=== PATIENT | female | born 1950 | race Caucasian/White ===

== ENCOUNTER 2020-02-25 08:49 | Emergency (ER) | payer BC, MEDICARE ==
[~2020-02-25] VITALS: Ht 167.6 cm; Wt 78.0 kg
[2020-02-25] MEDS ORDERED: LIDOCAINE 1%/EPI 1:100,000 10 ML VIAL IJ ONE (09:30)
[2020-02-25] MEDS ORDERED: OXYCODONE HCL/ACETAMINOPHEN 5/325MG TABLET PO ONE (10:30)
[2020-02-25 12:58] VITALS: BP 150/65
== END 2020-02-25 13:27 | disposition home or self-care (01) ==
LOC: ER 09:15
DX: S01.01XA Laceration without foreign body of scalp, initial encounter (principal); S42.294A Other nondisplaced fracture of upper end of right humerus, initial encounter for closed fracture; E11.9 Type 2 diabetes mellitus without complications; I11.9 Hypertensive heart disease without heart failure; I25.10 Atherosclerotic heart disease of native coronary artery without angina pectoris; I25.2 Old myocardial infarction; E78.00 Pure hypercholesterolemia, unspecified; W01.0XXA Fall on same level from slipping, tripping and stumbling without subsequent striking against object, initial encounter; Y93.9 Activity, unspecified; Y92.9 Unspecified place or not applicable
CPT/HCPCS: 12001; 70450; 71045; 72125; 73030; 73060; 99285; J3490